=== PATIENT | male | born 1985 | race Caucasian/White ===

== ENCOUNTER → 2020-06-09 13:44 | Outpatient (CLI) | payer BC, SELFPAY ==
--- NOTE | 2020-06-09 13:49 | DI.RAD.S_ITS ---
PROCEDURE: XR KUB INDICATIONS: Kidney stones TECHNIQUE: One view of the abdomen acquired. COMPARISON: None. FINDINGS: Surgical changes and devices: None. Bowel: Mild fecal stasis throughout the colon is seen. No gross free air. Soft tissues: Small calcification is noted projecting in the region of lower pole right kidney and measures 4 mm in size. Visualized solid organ contours appear normal in size. Bones: No suspicious bony lesions. IMPRESSION: Finding is suggestive of a small right renal calculus. No left-sided renal calculus. No evidence of bowel obstruction or gross free air. Dictated by: Stewart Lane M.D. on 06/09/2020 at 14:26 Approved by: Stewart Lane M.D. on 06/09/2020 at 14:27
--- NOTE | 2020-06-09 16:52 | DI.RAD.S_ITS ---
PROCEDURE: XR KUB INDICATIONS: Kidney Stones TECHNIQUE: One view of the abdomen acquired. COMPARISON: [facility], , XR KUB, 06/09/2020, 13:51. FINDINGS: Surgical changes and devices: None. Bowel: Bowel gas pattern is normal. Soft tissues: 4 mm right renal calculus involving the lower pole . No definite left-sided suspicious abdominal calcifications. Bones: No suspicious bony lesions. IMPRESSION: Right nephrolithiasis measuring 4 mm. Dictated by: Bebeto Townsend M.D. on 06/10/2020 at 10:11 Approved by: Bebeto Townsend M.D. on 06/10/2020 at 10:13
== END ==
PROVIDERS: Referring Provider Specialist; Visit Provider Specialist
DX: N20.0 Calculus of kidney (principal); N39.0 Urinary tract infection, site not specified; N20.1 Calculus of ureter; Z87.442 Personal history of urinary calculi; Z68.43 Body mass index [BMI] 50.0-59.9, adult
CPT/HCPCS: 74018; 81002

== ENCOUNTER → 2020-06-18 15:40 | Outpatient (CLI) | payer BC, SELFPAY ==
[2020-06-18 16:04] LABS: COVID19 -Nasal RAPID Negative (Negative)
== END ==
PROVIDERS: Visit Provider Specialist
DX: Z20.822 Contact with and (suspected) exposure to COVID-19 (principal)
CPT/HCPCS: 87635; C9803